=== PATIENT | male | born 1975 | race Caucasian/White ===

== ENCOUNTER 2017-01-25 12:23 | Emergency (ER) | payer OTHER ==
[~2017-01-25] VITALS: Ht 185.4 cm; Wt 101.3 kg
[2017-01-25 12:30] VITALS: BP 128/66
== END 2017-01-25 15:11 | disposition home or self-care (01) ==
LOC: ED 12:23
DX: S20.211A Contusion of right front wall of thorax, initial encounter (principal); L30.9 Dermatitis, unspecified; W18.49XA Other slipping, tripping and stumbling without falling, initial encounter; Y93.89 Activity, other specified; Y92.89 Other specified places as the place of occurrence of the external cause; Y99.8 Other external cause status

== ENCOUNTER 2017-05-20 14:48 | Emergency (ER) | payer OTHER ==
[~2017-05-20] VITALS: Ht 182.9 cm; Wt 103.4 kg
[2017-05-20 14:52] VITALS: BP 153/71
== END 2017-05-20 15:40 | disposition home or self-care (01) ==
LOC: ED 14:48
DX: S00.431A Contusion of right ear, initial encounter (principal); X58.XXXA Exposure to other specified factors, initial encounter; Y93.89 Activity, other specified; Y92.89 Other specified places as the place of occurrence of the external cause; Y99.8 Other external cause status

== ENCOUNTER 2017-05-22 11:09 | Emergency (ER) | payer OTHER ==
[~2017-05-22] VITALS: Ht 182.9 cm; Wt 103.4 kg
[2017-05-22 11:19] VITALS: Ht 182.9 cm; Wt 103.4 kg
[2017-05-22 14:09] VITALS: BP 133/58
== END 2017-05-22 14:41 | disposition home or self-care (01) ==
LOC: ED 11:09
DX: Z48.01 Encounter for change or removal of surgical wound dressing (principal)

== ENCOUNTER 2020-02-14 15:49 | Emergency (ER) | payer BC, SELFPAY ==
[~2020-02-14] VITALS: Ht 182.9 cm; Wt 102.1 kg
[2020-02-14 15:53] VITALS: Ht 182.9 cm; Wt 102.1 kg
[2020-02-14 16:45] VITALS: BP 171/62
== END 2020-02-14 16:45 | disposition home or self-care (01) ==
LOC: ED 15:49
DX: U07.1 COVID-19 (principal); B34.9 Viral infection, unspecified
CPT/HCPCS: U0003